=== PATIENT | male | born 1965 ===

== ENCOUNTER → 2023-05-17 | Outpatient (CLI) | payer OTHER | END | disposition home or self-care (01) | LOC: RADMN 09:27 | PROVIDERS: ATTEND Family Medicine | DX: M25.462 Effusion, left knee (principal); M79.4 Hypertrophy of (infrapatellar) fat pad; M70.42 Prepatellar bursitis, left knee; R59.0 Localized enlarged lymph nodes | CPT/HCPCS: 73721 ==